=== PATIENT | female | born 1990 | race Caucasian/White ===

== ENCOUNTER 2017-03-26 19:22 | Emergency (ER) | payer MEDICAID, OTHER ==
[~2017-03-26] VITALS: Ht 154.9 cm; Wt 96.9 kg
[2017-03-26 21:32] LABS: BLOOD UREA NITROGEN 10 mg/dL (7-18)
[2017-03-26 22:07] VITALS: BP 119/70
== END 2017-03-26 22:44 | disposition home or self-care (01) ==
LOC: ED 21:19
DX: G44.219 Episodic tension-type headache, not intractable (principal); H93.13 Tinnitus, bilateral; R42 Dizziness and giddiness
CPT/HCPCS: 36415; 80048; 82040; 85025; 99284

== ENCOUNTER → 2018-05-24 | Outpatient (CLI) | payer OTHER ==
[~2018-05-24] MED LIST: GADOBUTROL 10 MMOL/10 ML PFS ONE
== END | disposition home or self-care (01) ==
LOC: RAD 14:13
PROVIDERS: ATTEND Registered Nurse
DX: R55 Syncope and collapse (principal)
CPT/HCPCS: 70544; 70547; 70553; A9585

== ENCOUNTER → 2018-06-21 | Outpatient (CLI) | payer OTHER | END | disposition home or self-care (01) | LOC: CARD 13:33 | PROVIDERS: ATTEND Registered Nurse | DX: R55 Syncope and collapse (principal) | CPT/HCPCS: 95819 ==

== ENCOUNTER 2019-03-23 23:05 | Emergency (ER) | payer OTHER ==
[~2019-03-23] VITALS: Ht 154.9 cm; Wt 109.7 kg
[2019-03-23 23:54] LABS: BASOPHILS # (AUTO) 0.04 x10^3/uL (0-0.1); BASOPHILS % (AUTO) 0 % (0-1); EOSINOPHILS # (AUTO) 0.15 x10^3/uL (0-0.4); EOSINOPHILS % (AUTO) 1 % (1-7); LYMPHOCYTES # (AUTO) 3.32 x10^3/uL (1-3.4); LYMPHOCYTES % (AUTO) 30 % (22-44); MD NO; MEAN CORPUSCULAR HEMOGLOBIN 29.9 pg (27.0-34.8); MEAN PLATELET VOLUME 9.9 fL (7.4-10.4); MONOCYTES # (AUTO) 0.57 x10^3/uL (0.2-0.8); MONOCYTES % (AUTO) 5 % (2-9); NEUTROPHILS # (AUTO) 6.97 x10^3/uL (1.8-6.8); NEUTROPHILS % (AUTO) 63 % (42-75); PLATELET COUNT 254 x10^3/uL (130-400); RED CELL DISTRIBUTION WIDTH 13.2 % (9.6-15.2)
--- NOTE | 2019-03-24 | NUR ---
PT ON DEFENCE INTELLIGENCE ANALYST NORMAL SINUS RHYTHM 80-90'S WITH NO ECTOPY NOTED. UPDATED ON POC.
[2019-03-24 00:04] LABS: ALANINE AMINOTRANSFERASE 16 U/L (12-78); ALBUMIN 3.6 g/dL (3.4-5.0); ANION GAP 7 mmol/L (5-15); CALCIUM 8.2 mg/dL (8.5-10.1); CHLORIDE 110 mmol/L (98-107); CREATININE 0.99 mg/dL (0.55-1.02)
[2019-03-24 00:09] LABS: ALKALINE PHOSPHATASE 84 U/L (45-117); BILIRUBIN,TOTAL 0.2 mg/dL (0.2-1.0); T4 (THYROXINE) 8.7 mcg/dL (4.8-13.9); TOTAL PROTEIN 7.2 g/dL (6.4-8.2)
--- NOTE | 2019-03-24 00:17 | NUR ---
TASK RN: PT SITTING UP IN JENNIFER, RIVKA NOTED. PT REPORTS PALPITATIONS ARE "INSIGNIFICANT" AT PRESENT. NSR ON MONITOR. CHART UP FOR RECHECK, PT UDATED AND DEMONSTRATES UNDERSTANDING.
[2019-03-24] MEDS ORDERED: POTASSIUM CHLORIDE 10% 40 MEQ/30 ML UDC ONE (00:54)
[2019-03-24] MEDS ORDERED: POTASSIUM CHLORIDE 10% 40 MEQ/30 ML UDC PO ONE (01:00)
--- NOTE | 2019-03-24 01:06 | NUR ---
PT MEDICATED PER EMAR WITH ORAL POTASSIUM. UPDATED ON DISCHARGE INSTRUCTIONS.
[2019-03-24 01:07] VITALS: BP 122/71
== END 2019-03-24 01:19 | disposition home or self-care (01) ==
LOC: ED 03-24 00:12
DX: R00.2 Palpitations (principal); E87.6 Hypokalemia
CPT/HCPCS: 36415; 80053; 83735; 84436; 84443; 84703; 85025; 93005; 99284

== ENCOUNTER 2019-05-05 01:53 | Emergency (ER) | payer OTHER ==
[~2019-05-05] VITALS: Ht 154.9 cm; Wt 111.0 kg
[2019-05-05 03:32] VITALS: BP 109/61
[2019-05-05 03:35] LABS: BASOPHILS # (AUTO) 0.12 x10^3/uL (0-0.1); BASOPHILS % (AUTO) 1 % (0-1); EOSINOPHILS % (AUTO) 1 % (1-7); LYMPHOCYTES # (AUTO) 2.68 x10^3/uL (1-3.4); LYMPHOCYTES % (AUTO) 22 % (22-44); MD NO; MEAN CORPUSCULAR HEMOGLOBIN 29.9 pg (27.0-34.8); MEAN CORPUSCULAR HGB CONC 33.5 g/dL (32.4-35.8); MEAN CORPUSCULAR VOLUME 89.3 fL (80-100); MEAN PLATELET VOLUME 10.1 fL (7.4-10.4); MONOCYTES # (AUTO) 0.69 x10^3/uL (0.2-0.8); MONOCYTES % (AUTO) 6 % (2-9); NEUTROPHILS # (AUTO) 8.53 x10^3/uL (1.8-6.8); NEUTROPHILS % (AUTO) 70 % (42-75); PLATELET COUNT 272 x10^3/uL (130-400); RED BLOOD COUNT 4.57 x10^6/uL (3.82-5.3); RED CELL DISTRIBUTION WIDTH 12.8 % (9.6-15.2)
[2019-05-05 03:47] LABS: ALANINE AMINOTRANSFERASE 18 U/L (12-78); ALBUMIN 3.6 g/dL (3.4-5.0); ANION GAP 7 mmol/L (5-15); CALCIUM 8.5 mg/dL (8.5-10.1); CHLORIDE 110 mmol/L (98-107); CREATININE 0.94 mg/dL (0.55-1.02)
[2019-05-05 03:51] LABS: ALKALINE PHOSPHATASE 87 U/L (45-117); BILIRUBIN,TOTAL 0.3 mg/dL (0.2-1.0); TOTAL PROTEIN 7.5 g/dL (6.4-8.2)
== END 2019-05-05 04:18 | disposition home or self-care (01) ==
LOC: ED 04:00
DX: R00.2 Palpitations (principal)
CPT/HCPCS: 36415; 80053; 84703; 85025; 93005; 99284

== ENCOUNTER 2019-09-23 17:41 | Emergency (ER) | payer OTHER ==
[~2019-09-23] VITALS: Ht 154.9 cm; Wt 109.2 kg
[2019-09-23 17:45] VITALS: BP 113/90
--- NOTE | 2019-09-23 18:06 | NUR ---
THIS IS A 29 YO FEMALE COMING IN FOR "HUNGER PAINS, BUT NO APPETITE AFTER THE FLU". PATIENT STATES SHE HAD THE FLU 1 WEEK AGO, TESTED POSITIVE FOR INFLUENZA B AT [facility]. PATIENT SAID SHE HAS HAD INTERMITTENT FEVER IN THE 99 DEGREE RANGE. CURRENTLY AT 99.1. PATIENT STATES THAT SHE HAS BEEN ABLE TO GET SOME FOOD AND FLUIDS DOWN, HAS SOME NAUSEA BUT NO VOMITING. PATIENT STATES THAT SHE HAS BEEN FEELING "SHAKEY" WELL. PATIENT PLACED ON CONTINUOUS SPO2 AT 100%, CYCLE BP Q1HR. DENIES FURTHER NEEDS AT THIS TIME.
--- NOTE | 2019-09-23 18:20 | NUR ---
PATIENT CONSTANTLY LOOKING AT VITAL SIGNS MONITOR, WORRYING ABOUT HER OXYGEN LEVEL, STATES "IT'S NEVER BEEN THAT HIGH, IS IT POSSIBLE TO HAVE TOO MUCH OXYGEN? I REALLY DON'T FEEL GOOD, I FEEL LIGHTHEADED". PATIENT APPEARS AXIOUS, AND IS FIXATED ON VITAL SIGNS MONITOR.
--- NOTE | 2019-09-23 18:38 | NUR ---
MASTER TAX ADVISOR REQUESTED PRIMARY RN, STATED "THE PATIENT WON'T LET ME TAKE HER BLOOD, SHE IS PREOCCUPIED WITH THE VITAL SIGNS MONITOR", WENT IN TO ROOM, SWITCHED SPO2 STICKER AND FINGER, WENT FROM 100% TO 98% AND RELIEVED SOME ANXIETY OF PATIENT. USED SOOTHING THERAPEUTIC VOICE WITH PATIENT WHILE MASTER TAX ADVISOR KEY BLOOD, PATIENT'S HR WENT DOWN TO 88, AND ALLEVIATED SOME ANXIETY. PATIENT PROVIDED WITH NEW WARM BLANKET, CRACKERS, JUICE, AND APPLESAUCE. RESTING COMFORTABLY AT THIS TIME.
--- NOTE | 2019-09-23 18:48 | NUR ---
REPORT GIVEN TO TREVA REICH. PLAN OF CARE DISCUSSED.
[2019-09-23 18:54] LABS: ALANINE AMINOTRANSFERASE 52 U/L (12-78); ALBUMIN 3.8 g/dL (3.4-5.0); ANION GAP 7 mmol/L (5-15); CALCIUM 8.5 mg/dL (8.5-10.1); CHLORIDE 107 mmol/L (98-107); CREATININE 1.02 mg/dL (0.55-1.02)
[2019-09-23 18:55] LABS: BASOPHILS # (AUTO) 0.04 x10^3/uL (0-0.1); BASOPHILS % (AUTO) 1 % (0-1); EOSINOPHILS # (AUTO) 0.04 x10^3/uL (0-0.4); EOSINOPHILS % (AUTO) 1 % (1-7); LYMPHOCYTES # (AUTO) 2.25 x10^3/uL (1-3.4); LYMPHOCYTES % (AUTO) 30 % (22-44); MD NO; MEAN CORPUSCULAR HEMOGLOBIN 29.1 pg (27.0-34.8); MEAN CORPUSCULAR HGB CONC 32.8 g/dL (32.4-35.8); MEAN CORPUSCULAR VOLUME 88.7 fL (80-100); MONOCYTES # (AUTO) 0.53 x10^3/uL (0.2-0.8); MONOCYTES % (AUTO) 7 % (2-9); NEUTROPHILS # (AUTO) 4.58 x10^3/uL (1.8-6.8); NEUTROPHILS % (AUTO) 62 % (42-75); PLATELET COUNT 237 x10^3/uL (130-400); RED BLOOD COUNT 4.93 x10^6/uL (3.82-5.3)
[2019-09-23 18:59] LABS: ALKALINE PHOSPHATASE 69 U/L (45-117); BILIRUBIN,TOTAL 0.4 mg/dL (0.2-1.0); TOTAL PROTEIN 8.2 g/dL (6.4-8.2)
--- NOTE | 2019-09-23 19:39 | NUR ---
TASK RN: DC EDUCATION PROVIDED, PT DEMONSTRATES UNDERSTANDING. PT AMBUALTED STEADILY TO DC WITH RN. FRIEND TO TRANSPORT PT HOME
== END 2019-09-23 19:41 | disposition home or self-care (01) ==
LOC: ED 19:20
DX: R63.0 Anorexia (principal); R55 Syncope and collapse; R05 Cough
CPT/HCPCS: 36415; 80053; 83690; 84703; 85025; 93005; 99284

== ENCOUNTER 2019-10-02 22:44 | Inpatient (IN) | payer OTHER ==
[~2019-10-02] VITALS: Ht 154.9 cm; Wt 108.3 kg
[2019-10-02 23:09] LABS: BASOPHILS # (AUTO) 0.11 x10^3/uL (0-0.1); BASOPHILS % (AUTO) 1 % (0-1); EOSINOPHILS # (AUTO) 0.09 x10^3/uL (0-0.4); EOSINOPHILS % (AUTO) 1 % (1-7); LYMPHOCYTES # (AUTO) 2.56 x10^3/uL (1-3.4); LYMPHOCYTES % (AUTO) 22 % (22-44); MD NO; MEAN CORPUSCULAR HEMOGLOBIN 29.3 pg (27.0-34.8); MEAN CORPUSCULAR HGB CONC 32.4 g/dL (32.4-35.8); MEAN CORPUSCULAR VOLUME 90.6 fL (80-100); MONOCYTES # (AUTO) 0.71 x10^3/uL (0.2-0.8); MONOCYTES % (AUTO) 6 % (2-9); NEUTROPHILS % (AUTO) 70 % (42-75); PLATELET COUNT 315 x10^3/uL (130-400); RED BLOOD COUNT 4.87 x10^6/uL (3.82-5.3); RED CELL DISTRIBUTION WIDTH 13.6 % (9.6-15.2)
[2019-10-02 23:22] LABS: ALBUMIN 3.9 g/dL (3.4-5.0); ANION GAP 5 mmol/L (5-15); CALCIUM 8.4 mg/dL (8.5-10.1); CHLORIDE 109 mmol/L (98-107); CREATININE 1.01 mg/dL (0.55-1.02)
--- NOTE | 2019-10-03 00:08 | NUR ---
PER COOK BOAT, PT STATES SHE HAD RECENT XRAYS AND DOES NOT WANT ANOTHER ONE
[2019-10-03] MEDS ORDERED: LORazepam 1MG TABLET ONE (00:49)
--- NOTE | 2019-10-03 00:57 | NUR ---
ATTEMPTED TO CONDUCT ORTHOSTATIC VITALS. AFTER MUCH CONVERSATIONS, PT REFUSED ORTHOS AT THIS TIME BECAUSE SHE IS TOO ANXIOUS. ER MD NOTIFIED. MEDCIATED PER EMAR FOR ANXIETY. WILL REATTEMPT ORTHOS IN A FEW MINUTES
[2019-10-03] MEDS ORDERED: LORazepam 1MG TABLET PO ONE (01:00)
--- NOTE | 2019-10-03 01:29 | NUR ---
PT AMBULATORY TO THE BATHROOM WITH STEADY GAIT
[2019-10-03] MEDS ORDERED: SODIUM CHLORIDE FLUSH 10ML SYR IVF ONE (01:30)
[2019-10-03] MEDS ORDERED: SODIUM CHLORIDE 0.9% 1,000ML IVBOLUS ONE (01:30)
--- NOTE | 2019-10-03 02:39 | NUR ---
Break RN: ERP at bedside for re- evaluation.
--- NOTE | 2019-10-03 02:58 | NUR ---
patient ambulated without difficulty. ERP at bedside.
--- NOTE | 2019-10-03 03:29 | NUR ---
REPORT TO TREVA FRANCIS
[2019-10-03] MEDS ORDERED: DOCUSATE 100 MG CAPSULE PO PRN (03:30)
[2019-10-03] MEDS ORDERED: POLYETHYLENE GLYCOL 17 GM PACKET PO PRN (03:30)
[2019-10-03] MEDS ORDERED: ASA/APAP/ CAFFEINE TABLET PO PRN (03:30)
[2019-10-03] MEDS ORDERED: PROMETHAZINE 25 MG/ML, 1ML IM PRN (03:30)
[2019-10-03] MEDS ORDERED: LORazepam 1MG TABLET PO PRN (03:30)
[2019-10-03] MEDS ORDERED: ACETAMINOPHEN 325 MG TABLET PO PRN (03:30)
[2019-10-03] MEDS ORDERED: BISACODYL 10 MG SUPP PR PRN (03:30)
[2019-10-03] MEDS ORDERED: hydrALAzine 20 MG/ML, 1ML IVPush PRN (03:30)
[2019-10-03] MEDS ORDERED: KETOROLAC 30 MG/1 ML IV PRN (03:30)
[2019-10-03] MEDS ORDERED: ONDANSETRON 2MG/ML, 2ML IVPush PRN (03:30)
[2019-10-03] MEDS ORDERED: ONDANSETRON ODT 4 MG PO PRN (03:30)
[2019-10-03] MEDS: SODIUM CHLORIDE 0.9% 1,000 ML IV SCH ×2 (04:01→12:05)
[2019-10-03 04:18] LABS: HEMOGLOBIN A1C 5.1 % (4.2-6.3)
[2019-10-03 04:19] VITALS: BP 123/84
[2019-10-03 06:58] VITALS: BP 102/68
[2019-10-03] MEDS: MECLIZINE 25 MG TABLET PO SCH ×3 (10:05→20:52)
[2019-10-03 10:20] VITALS: BP_SYST 122; BP_SYST 128; BP_DIAS 68; BP_DIAS 74
[2019-10-03 10:22] LABS: MICROSCOPIC NOT IND
[2019-10-03 10:30] LABS: CULTURE INDICATED? NO
[2019-10-03 12:34] VITALS: BP_SYST 132; BP_SYST 89; BP_DIAS 45; BP_DIAS 82
[2019-10-03] MEDS: ENOXAPARIN 40 MG/0.4 ML SQ SCH (17:07)
[2019-10-03 19:41] VITALS: BP 122/86
[2019-10-04] VITALS (7 sets, daily range): BP systolic 106–128; BP diastolic 66–88
[2019-10-04 05:10] LABS: BASOPHILS # (AUTO) 0.05 x10^3/uL (0-0.1); BASOPHILS % (AUTO) 0 % (0-1); EOSINOPHILS # (AUTO) 0.05 x10^3/uL (0-0.4); EOSINOPHILS % (AUTO) 0 % (1-7); LYMPHOCYTES # (AUTO) 3.31 x10^3/uL (1-3.4); LYMPHOCYTES % (AUTO) 27 % (22-44); MD NO; MEAN CORPUSCULAR HEMOGLOBIN 29.3 pg (27.0-34.8); MEAN CORPUSCULAR HGB CONC 32.5 g/dL (32.4-35.8); MEAN PLATELET VOLUME 10.6 fL (7.4-10.4); MONOCYTES # (AUTO) 0.85 x10^3/uL (0.2-0.8); MONOCYTES % (AUTO) 7 % (2-9); NEUTROPHILS # (AUTO) 7.84 x10^3/uL (1.8-6.8); NEUTROPHILS % (AUTO) 65 % (42-75); PLATELET COUNT 261 x10^3/uL (130-400); RED BLOOD COUNT 4.45 x10^6/uL (3.82-5.3); RED CELL DISTRIBUTION WIDTH 13.7 % (9.6-15.2)
[2019-10-04 05:20] LABS: CHLORIDE 111 mmol/L (98-107)
[2019-10-04 05:26] LABS: ALANINE AMINOTRANSFERASE 23 U/L (12-78); ALBUMIN 3.4 g/dL (3.4-5.0); ALKALINE PHOSPHATASE 71 U/L (45-117); ANION GAP 7 mmol/L (5-15); BILIRUBIN,TOTAL 0.4 mg/dL (0.2-1.0); CHOL/HDL RATIO 3.2; CHOLESTEROL, TOTAL 108 mg/dL (140-239); CREATININE 0.85 mg/dL (0.55-1.02); HDL CHOL % 31 % (28-40); HDL CHOLESTEROL (DIRECT) 34 mg/dL (40-60); LDL CHOLESTEROL,CALCULATED 55 mg/dL (54-169); LDL/HDL RATIO 1.6 (0.5-3.0); TRIGLYCERIDES 97 mg/dL (50-200); VLDL CHOLESTEROL 19 mg/dL (0-25)
[2019-10-04] MEDS: MECLIZINE 25 MG TABLET PO SCH ×3 (09:00→20:10)
[2019-10-04] MEDS: ENOXAPARIN 40 MG/0.4 ML SQ SCH (14:00)
[2019-10-04] MEDS ORDERED: MECL25TA4 PO (14:51)
[2019-10-04] MEDS ORDERED: FLUD0.1T PO (14:51)
[2019-10-05 02:35] VITALS: BP 117/87
[2019-10-05 07:24] VITALS: BP 121/85
[2019-10-05] MEDS ORDERED: FLUDROCORTISONE 0.1 MG TABLET PO SCH (09:00)
[2019-10-05] MEDS: MECLIZINE 25 MG TABLET PO SCH (09:53)
[2019-10-05] MEDS ORDERED: LORazepam 0.5MG TABLET PO ONE (11:00)
== END 2019-10-05 12:11 | disposition home or self-care (01) | DRG 644 ==
LOC: ED 23:41 → EDIP 10-03 02:59 → 4WST 10-03 03:40
PROVIDERS: ADMIT Internal Medicine; ATTEND Internal Medicine
DX: E27.40 Unspecified adrenocortical insufficiency (principal); Z68.42 Body mass index [BMI] 45.0-49.9, adult; E66.01 Morbid (severe) obesity due to excess calories; F41.0 Panic disorder [episodic paroxysmal anxiety]; G47.31 Primary central sleep apnea; H91.90 Unspecified hearing loss, unspecified ear; R55 Syncope and collapse; F41.9 Anxiety disorder, unspecified; R00.2 Palpitations
CPT/HCPCS: 0399T; 36415; 80048; 80053; 80061; 81003; 82040; 82533; 83036; 83735; 84439; 84443; 84703; 85025; 93005; 93306; 93880; 96360; 99285; G0378; J7030

== ENCOUNTER 2020-05-11 15:49 | Emergency (ER) | payer MEDICAID ==
[~2020-05-11 15:49] MED LIST changes: +FLUD0.1T PO; -GADOBUTROL 10 MMOL/10 ML PFS ONE; +MECL-101 PO
--- NOTE | 2020-05-11 16:15 | NUR ---
NIL X 1 @[id number]
--- NOTE | 2020-05-11 16:25 | NUR ---
NIL X 2 @[id number]
--- NOTE | 2020-05-11 16:33 | NUR ---
NO ANSWER X 3, PT NOT IN LOBBY
== END 2020-05-11 16:35 | disposition left against medical advice (07) ==
LOC: ED 16:29
DX: M79.672 Pain in left foot (principal); Z53.21 Procedure and treatment not carried out due to patient leaving prior to being seen by health care provider

== ENCOUNTER 2020-11-04 11:01 | Day surgery (SDC) | payer MEDICAID ==
[2020-11-04] MEDS ORDERED: LIDOCAINE 1%, 20ML ONE (11:33)
[2020-11-04] MEDS ORDERED: CARV3.122 PO (11:45)
== END 2020-11-04 12:30 | disposition home or self-care (01) ==
LOC: CACL 11:01
PROVIDERS: ATTEND Internal Medicine Cardiovascular Disease
DX: I47.9 Paroxysmal tachycardia, unspecified (principal); G47.30 Sleep apnea, unspecified; E66.9 Obesity, unspecified; Z72.89 Other problems related to lifestyle; Z68.41 Body mass index [BMI] 40.0-44.9, adult; Z79.899 Other long term (current) drug therapy
CPT/HCPCS: 33285; C1764

== ENCOUNTER → 2021-08-11 | Outpatient (CLI) | payer MEDICAID ==
[~2021-08-11] MED LIST changes: +CARV3.122 PO
== END | disposition home or self-care (01) ==
LOC: CVU 09:12
PROVIDERS: ATTEND Internal Medicine Cardiovascular Disease
DX: I36.1 Nonrheumatic tricuspid (valve) insufficiency (principal); R06.00 Dyspnea, unspecified
CPT/HCPCS: 93306